=== PATIENT | female | born 1985 | race Caucasian/White ===

== ENCOUNTER 2017-01-11 08:16 | Inpatient (IN) | payer BC ==
[2017-01-11] MEDS ORDERED: CARBOPROST TROMETHAMINE 250 MCG/ML 1 ML AMP IM PRN (08:36)
[2017-01-11] MEDS ORDERED: OXYTOCIN 10 UNIT/ML 1 ML VIAL IM PRN (08:36)
[2017-01-11] MEDS ORDERED: METHYLERGONOVINE 0.2 MG/ML 1 ML AMP IM PRN (08:36)
[2017-01-11] MEDS ORDERED: TERBUTALINE 1 MG/ML VIAL SQ PRN (08:36)
[2017-01-11] MEDS ORDERED: LIDOCAINE 1% (PF) 10 MG/ML (30 ML SDV) SQ PRN (08:36)
[2017-01-11] MEDS ORDERED: LACTATED RINGERS 1,000 ML IV SCH (08:45)
[2017-01-11 08:50] LABS: Aty Lym Flag Moderate; HCT 38.9 % (34.0-46.0); HDW 2.96; HGB 12.8 gm/dL (11.4-16.0); MCH 28.2 pg (25.0-35.0); MCHC 32.9 g/dL (31.0-37.0); MCV 85.9 fL (80.0-100.0); MPO Flag Slight; Mean Platelet Volume 7.7; RBC 4.53 m/uL (3.80-5.40); RDW 14.7 % (11.5-15.5); WBC 11.3 k/uL (3.8-10.6); WBC (Perox) 390.2
[2017-01-11 09:01] LABS: Add Differential Manual Differential
[2017-01-11 09:04] LABS: Band Neutrophils % 1 %; Manual Review Performed; Metamyelocytes % 1 %; Nucleated Red Blood Cells 0 /100 WBC (0-0); Total Cells Counted 200
[2017-01-11] MEDS ORDERED: fentaNYL (PF) 50 MCG/ML 5 ML AMP ONE (09:10)
[2017-01-11] MEDS ORDERED: SODIUM CHLORIDE 0.9% 100 ML BAG ONE (09:10)
[2017-01-11] MEDS ORDERED: BUPIVACAINE (PF) 0.25% 30 ML VIAL ONE (09:10)
--- NOTE | 2017-01-11 10:25 | P.HPOB ---
History of Present Illness H&P Date: 01/11/17 Chief Complaint: 38-3/7 weeks, spontaneous rupture of membranes, labor The patient is a 31-year-old 2 para 1001 admitted at 38-3/7 weeks as established by last menstrual period and confirmed by 19 week ultrasound. She is admitted with documented spontaneous rupture of membranes approximately 6-7 hours prior to admission and in early active labor with all signs reassuring. Her has been uncomplicated though she is Rh- and received RhoGAM at 28 weeks. Ultrasound at 19 weeks demonstrated bilateral full renal pelves which remained present though less so at approximately 28 weeks. Group B strep status is negative. Obstetrical history: 2 para 1001 with 1 term vaginal delivery, dated only by third degree perineal laceration. Current statistics are listed in history of present illness. EDC of 01/22/2017 was established by last menstrual period and confirmed by 19 week ultrasound. Laboratory workup demonstrates a blood type of B- with a negative antibody screen. Rubella status is immune. The remainder of the laboratory workup was within normal limits. One hour Glucola was normal and group B strep status is negative. Gynecologic history: Unremarkable with no history of any infections to include STDs. Review of Systems Review of systems is confined to history of present illness. Past Medical History Past Medical History: No Reported History History of Any Multi-Drug Resistant Organisms: None Reported Past Surgical History: No Surgical Hx Reported Additional Past Surgical History / Comment(s): [place] teeth removal age 17 Past Anesthesia/Blood Transfusion Reactions: No Reported Reaction Past Psychological History: No Psychological Hx Reported Smoking Status: Never smoker Past Alcohol Use History: None Reported Past Drug Use History: None Reported - Past Family History Mother Family Medical History: No Reported History Medications and Allergies Home Medications Medication Instructions Recorded Confirmed Type Pnv,Calcium 72/Iron/Folic Acid 1 tab PO DAILY 01/11/17 01/11/17 History [ Plus Tablet] Allergies Allergy/AdvReac Type Severity Reaction Status Date / Time No Known Allergies Allergy Verified 01/11/17 08:34 Exam - Vital Signs Vital signs: Vital Signs Temp Pulse Resp BP 01/11/17 08:30 98.1 F 93 16 132/78 Intake and Output 01/10/17 01/11/17 01/11/17 22:59 06:59 14:59 Other: Weight 86.183 kg Patient Weight 01/12/17 06:59 Weight 86.183 kg In general, this is a well-developed, well-nourished white female in no acute distress. Her heart has a regular rhythm and rate without murmur. Her lungs are clear to auscultation bilaterally in all marshall. Her abdomen is gravid, nondistended, has normal active bowel sounds, is soft, nontender, and without any palpable masses aside from uterine fundus. Her extremities are without any cyanosis, clubbing, or significant edema and are nontender to palpation bilaterally. Digital cervical examination performed by the nursing staff demonstrates her cervix to be 7 cm dilated, 90% effaced, the vertex in presentation at -2 station. Spontaneous rupture of membranes has been confirmed. Results Result Diagrams: 01/11/17 08:40 Abnormal Lab Results - Last 24 Hours (Table) 01/11/17 Range/Units 08:40 WBC 11.3 H (3.8-10.6) k/uL Neutrophils # (Manual) 8.50 H (1.3-7.7) k/uL Metamyelocytes # (Man) 0.11 H (0) k/uL Assessment and Plan (1) Spontaneous rupture of amniotic membranes Status: Acute (2) Spontaneous onset of labor Status: Acute Plan: The patient has been admitted for active management of labor. She is laboring on her own at this point and has had an epidural catheter placed for analgesia. She will continue to have close maternal and surveillance and expectant management will be practiced. Should she make no significant progress over the next hour or 2, Pitocin augmentation will be added.
[2017-01-11 11:34] VITALS: BMI 28.0
[2017-01-11] MEDS ORDERED: ACETAMINOPHEN TAB 325 MG TAB PO PRN (11:47)
[2017-01-11] MEDS ORDERED: Acetaminophen-Codeine 300-30mg TAB PO PRN ×2 (11:47)
[2017-01-11] MEDS ORDERED: WITCH HAZEL 1 EACH MED..PAD TOPICAL PRN (11:47)
[2017-01-11] MEDS ORDERED: LANOLIN CREAM 5 GM TUBE TOPICAL PRN (11:47)
[2017-01-11] MEDS ORDERED: ZOLPIDEM 5 MG TAB PO PRN (11:47)
[2017-01-11] MEDS ORDERED: diphenhydrAMINE 50 MG CAP PO PRN (11:47)
[2017-01-11] MEDS ORDERED: diphenhydrAMINE 25 MG CAP PO PRN (11:47)
[2017-01-11] MEDS ORDERED: diphenhydrAMINE 50 MG/ML 1 ML VIAL IVP PRN ×2 (11:47)
[2017-01-11] MEDS ORDERED: BENZOCAINE/MENTHOL SPRAY 1 GM/SPRAY AEROSOL TOPICAL PRN (11:47)
[2017-01-11] MEDS ORDERED: HYDROCORTISONE 2.5% RECTAL CREAM 30 GM TUBE RECTAL PRN (11:47)
[2017-01-11] MEDS ORDERED: SIMETHICONE 80 MG CHEWABLE PO PRN (11:47)
--- NOTE | 2017-01-11 11:50 | P.PROBDLV ---
Vaginal Delivery Note - . Vaginal Delivery Note: The patient is a 31-year-old 2 para 1001 admitted at 38-3/7 weeks by good dating parameters. She is admitted in early active labor with spontaneous rupture of membranes of clear fluid and all signs reassuring. Her has been uncomplicated though she is Rh- and received RhoGAM at 28 weeks. The was noted on 19 week ultrasound to have bilateral full renal pelves which had resolved to some extent on repeat ultrasound at 28 weeks. On labor and delivery, she had an epidural catheter placed for analgesia and then progressed fairly quickly on her own to complete and +2 station. She pushed over the course of 1 contraction to a normal spontaneous vaginal delivery of a viable 7 lbs. 8 oz. baby boy with Apgars of 9 at 1 minute and 9 at 5 minutes delivered in the right occiput anterior position. The placenta was delivered spontaneously, intact, and grossly normal with a grossly normal, marginally inserted three-vessel cord. A second-degree midline laceration was noted over the site of a previous laceration was repaired in standard fashion using 3-0 Vicryl without difficulty. Estimated blood loss for the case was approximately 300 mL. There were no complications. All sponge, instrument, and needle counts were correct. Both mother and infant are resting comfortably in recovery.
--- NOTE | 2017-01-11 13:35 | P.MSEPDOC ---
Presenting Problems - Arrival Data Date of Arrival on Unit: 01/11/17 Time of Arrival on Unit: 08:30 Mode of Transport: Ambulatory - Complaint OB-Reason for Admission/Chief Complaint: Possible Onset of Labor Medical History - Information : 2 Para: 1 Term: 1 : 0 Abortions: Spontaneous or Elective: 0 Number of Living Children: 1 - Gestational Age Expected Date of Delivery: 01/22/17 Gestational Age by CLIFF (wks/days): 38 Weeks and 3 Days Review of Systems - Review of Systems Constitutional: No problems Breast: No problems ENT: No problems Cardiovascular: No problems Respiratory: No problems Gastrointestinal: No problems Genitourinary: No problems Musculoskeletal: No problems Neurological: No problems Skin: No problems Vital Signs - Temperature Temperature: 97.3 F Temperature Source: Tympanic - Pulse Right Brachial Pulse Rate: 93 Pulse Assessment Method: Automatic Cuff - Respirations Respiratory Rate: 14 Oxygen Delivery Method: Room Air - Blood Pressure Right Arm Blood Pressure: 106/64 Blood Pressure Mean: 78 Blood Pressure Source: Automatic Cuff Medical Screen Scoring (Pre) - Cervical Exam Dilation: 4-7 cm = 2 Effacement: More than 50% = 2 Membranes: Ruptured = 3 - Uterine Contractions Frequency: > or = 36 weeks =2 Duration: > 40 seconds = 2 Intensity: Contraction palpated strong = 1 - Maternal Vital Signs Maternal Temperature: N/A Signs of Preeclampsia: N/A Maternal Respirations: N/A - Maternal Trauma Maternal Trauma: N/A - Assessment Heart Rate - NICHD Category: Category I (Normal) = 0 NST: Reactive Position: N/A Station: N/A - Total Score Total Score (Pre): 12 - Level of Risk Level of Risk: High (10+) Physician Notification (Pre) - Physician Notified Physician Notified Date: 01/11/17 Physician Notified Time: 08:35 Physician/Practitioner Notifed:: Dr. Schafer New Order Received: Yes - Notification Comment Comment: Pt admitted for labor Disposition - Disposition OB Disposition: Admit I agree with the RN Medical Screening Exam: Yes Risk & Benefit of care provided described in d/c instruction: Yes Diagnosis: ENCOUNTER FOR FULL-TERM UNCOMPLICATED DELIVERY
[2017-01-11] MEDS ORDERED: OXYTOCIN 20 UNITS/1000 ML NS 1,000 ML IV SCH (16:15)
[2017-01-11] MEDS: IBUPROFEN 600 MG TAB PO PRN (19:52)
[2017-01-11] MEDS: SENNOSIDES-DOCUSATE SODIUM 1 EACH TAB PO SCH (19:52)
[2017-01-12] MEDS: IBUPROFEN 600 MG TAB PO PRN (06:32)
--- NOTE | 2017-01-12 06:55 | P.PNOBGVD ---
Subjective - Subjective Patient reports: Reports appetite normal, Reports voiding normally, Reports pain well controlled, Reports ambulating normally : doing well Objective - Latest Vital Signs Latest vital signs: Vital Signs Temp Pulse Resp BP 01/12/17 04:00 98.2 F 73 14 111/72 01/12/17 00:00 98.2 F 74 16 107/64 01/11/17 20:00 98.3 F 76 16 112/66 01/11/17 16:00 99.0 F 97 16 123/68 01/11/17 13:35 97.3 F L 93 14 106/64 01/11/17 13:34 97.5 F L 113 H 14 110/55 01/11/17 13:04 93 14 106/64 01/11/17 12:34 99 14 109/61 01/11/17 12:19 97.3 F L 100 16 118/65 01/11/17 12:04 97.3 F L 111 H 16 114/76 01/11/17 11:49 103 H 16 110/61 01/11/17 11:34 98.1 F 100 16 116/59 01/11/17 08:34 98.1 F 93 16 132/78 01/11/17 08:30 98.1 F 93 16 132/78 Intake and Output 01/11/17 01/11/17 01/12/17 14:59 22:59 06:59 Other: # Voids 2 2 Weight 86.183 kg Patient Weight 01/12/17 06:59 Weight 86.183 kg - Exam Lungs: bilateral: normal Chest: Normal S1, Normal S2 Extremities: Present: normal Abdomen: Present: normal appearance, soft Uterus: Present: normal, firm (Uterine fundus as tonic and nontender around the umbilicus.) - Labs Labs: Abnormal Lab Results - Last 24 Hours (Table) 01/11/17 Range/Units 08:40 WBC 11.3 H (3.8-10.6) k/uL Neutrophils # (Manual) 8.50 H (1.3-7.7) k/uL Metamyelocytes # (Man) 0.11 H (0) k/uL Assessment and Plan (1) Spontaneous rupture of amniotic membranes Current Visit: Yes Status: Acute Code(s): [id number] - SNOMED Code(s): 493887884 (2) Spontaneous onset of labor Current Visit: Yes Status: Acute Code(s): LAW0316 - SNOMED Code(s): 52209825 (3) Normal spontaneous vaginal delivery Narrative/Plan: Continue routine care. The patient has opted to remain in the hospital in order to utilize the assistance of the data migration consultant tomorrow morning. She will likely be discharged home tomorrow. Current Visit: Yes Status: Acute Code(s): O80 - ENCOUNTER FOR FULL-TERM UNCOMPLICATED DELIVERY SNOMED Code(s): 32189587
[2017-01-12 09:05] VITALS: RESP 16
[2017-01-12] MEDS: SENNOSIDES-DOCUSATE SODIUM 1 EACH TAB PO SCH ×2 (09:16→20:03)
[2017-01-13] MEDS: IBUPROFEN 600 MG TAB PO PRN (07:59)
[2017-01-13 08:46] VITALS: BP 104/54; PULSE 64; TEMP 98.2
[2017-01-13] MEDS: SENNOSIDES-DOCUSATE SODIUM 1 EACH TAB PO SCH (08:47)
--- NOTE | 2017-01-13 08:47 | P.DS ---
Providers Date of admission: 01/11/17 08:26 Expected date of discharge: 01/13/17 Attending physician: Capo Schafer - Discharge Diagnosis(es) (1) Spontaneous rupture of amniotic membranes Current Visit: Yes Status: Acute (2) Spontaneous onset of labor Current Visit: Yes Status: Acute (3) Normal spontaneous vaginal delivery Current Visit: Yes Status: Acute Hospital Course: The patient is a 31-year-old 2 para 101 admitted at 38-3/7 weeks by good dating parameters. She is admitted with spontaneous rupture of membranes and in active labor with all signs reassuring. Her was uncomplicated though she was Rh- and received RhoGAM at 28 weeks. Group B strep status was negative. On labor and delivery, she had an epidural catheter placed for analgesia and progressed fairly quickly to complete. She then pushed to a normal spontaneous vaginal delivery of a viable 7 lbs. 8 oz. baby boy with Apgars of 9 at 1 minute and 9 at 5 minutes. Her course was unremarkable with vital signs being stable and her temperature was afebrile throughout. She was deemed stable for discharge by day #2 and was discharged home to follow-up in the office in 6 weeks' time routinely. Discharge instructions included calling for any significantly increased bleeding or foul-smelling lochia, significantly increased fever abdominal pain, perineal complaints, breast complaints, or anything else that concerned her. She was additionally instructed to have nothing in the vagina for at least 6 weeks time to include intercourse. She understood her instructions and agrees to follow up as noted above. Discharge medications included [id number] analgesic pain medications as well as continued vitamins as she has opted to breast-feed. She is additionally provided a prescription for Anusol HC cream to be applied as needed. Maternal blood type is B- and cord blood was sent for evaluation for the necessity of RhoGAM prior to discharge. Rubella status is immune. Procedures: #1. Epidural analgesia #2. Normal spontaneous vaginal delivery #3. Repair of perineal laceration Patient Condition at Discharge: Good Plan - Discharge Summary New Discharge Prescriptions: No Action Pnv,Calcium 72/Iron/Folic Acid [ Plus Tablet] 1 tab PO DAILY Discharge Medication List Pnv,Calcium 72/Iron/Folic Acid [ Plus Tablet] 1 tab PO DAILY 01/11/17 [ History] Follow up Appointment(s)/Referral(s): Capo Schafer MD [STAFF PHYSICIAN] - 6 Weeks Discharge Disposition: HOME SELF-CARE
== END 2017-01-13 10:30 | disposition home or self-care (01) | DRG 775 ==
LOC: FBPOP 08:16 → 4FBP 08:26
PROVIDERS: ADMIT Obstetrics & Gynecology; ATTEND Obstetrics & Gynecology
PROC: 10E0XZZ Delivery of Products of Conception, External Approach (ICD-10-PCS; principal; 2017-01-11)
PROC: 0KQM0ZZ Repair Perineum Muscle, Open Approach (ICD-10-PCS; 2017-01-11)
PROC: 3E0S3NZ Introduction of Analgesics, Hypnotics, Sedatives into Epidural Space, Percutaneous Approach (ICD-10-PCS; 2017-01-11)
DX: O70.1 Second degree perineal laceration during delivery (principal); Z37.0 Single live birth; O26.893 Other specified pregnancy related conditions, third trimester; Z3A.38 38 weeks gestation of pregnancy; Z67.21 Type B blood, Rh negative
CPT/HCPCS: 85025; 88307